=== PATIENT | female | born 1975 | race Caucasian/White ===

== ENCOUNTER 2022-03-06 11:30 | Inpatient (IN) | payer BC, OTHER ==
[2022-03-06] MEDS ORDERED: Sodium Chloride 0.9% 10 ML Syringe FLUSH PRN (11:51)
[2022-03-06] MEDS ORDERED: Ondansetron 4 MG/2 ML SDV IVPUSH ONE (11:53)
[2022-03-06] MEDS: Sodium Chloride 0.9% 1,000 ML IV SCH ×3 (12:00→19:17)
[2022-03-06 12:31] LABS: ANION GAP 22.7 mmol/L (5-15)
[2022-03-06 13:38] LABS: CORONAVIRUS COVID-19 NAA NEGATIVE (NEGATIVE)
[2022-03-06 13:39] LABS: RESPIRATORY SYNCYTIAL VIR NAA NEGATIVE (NEGATIVE)
[2022-03-06] MEDS ORDERED: Ondansetron 4 MG Tab.DIS PO PRN (13:59)
[2022-03-06] MEDS ORDERED: Acetaminophen 325 MG Tab PO PRN (13:59)
[2022-03-06] MEDS ORDERED: Ondansetron 4 MG/2 ML SDV IVPUSH PRN (14:02)
[2022-03-06] MEDS ORDERED: Loperamide 2 MG Cap PO PRN (15:36)
[2022-03-06 16:34] LABS: ANION GAP 17.3 mmol/L (5-15)
[2022-03-06] MEDS: traZODone 50 MG Tab PO PRN (20:07)
[2022-03-07] MEDS: Sodium Chloride 0.9% 1,000 ML IV SCH ×2 (01:57→18:10)
[2022-03-07] MEDS: Pantoprazole 40 MG Tab.CR PO SCH (05:59)
[2022-03-07 07:01] LABS: ANION GAP 13.5 mmol/L (5-15)
[2022-03-07] MEDS: buPROPion 150 MG Tab.ER PO SCH (07:11)
[2022-03-07] MEDS ORDERED: ADALIMUMAB 40 MG/0.4 ML SQ SCH (10:00)
[2022-03-07] MEDS: COLESTIPOL HCL 1 GM PO SCH ×2 (10:27→21:25)
[2022-03-07] MEDS: traZODone 50 MG Tab PO PRN (21:25)
[2022-03-08] MEDS: Pantoprazole 40 MG Tab.CR PO SCH (06:21)
[2022-03-08] MEDS: buPROPion 150 MG Tab.ER PO SCH (07:18)
[2022-03-08 07:49] LABS: ANION GAP 10.6 mmol/L (5-15)
== END 2022-03-08 12:00 | disposition home or self-care (01) | DRG 683 ==
LOC: VM.ED 11:30 → VM.MS 13:09
PROVIDERS: ADMIT Family Medicine; ATTEND Family Medicine
DX: N17.9 Acute kidney failure, unspecified (principal); E87.1 Hypo-osmolality and hyponatremia; D84.821 Immunodeficiency due to drugs; K50.90 Crohn's disease, unspecified, without complications; A08.4 Viral intestinal infection, unspecified; I10 Essential (primary) hypertension; E86.0 Dehydration; E66.9 Obesity, unspecified; K21.9 Gastro-esophageal reflux disease without esophagitis; F32.A Depression, unspecified; G47.00 Insomnia, unspecified; Z20.822 Contact with and (suspected) exposure to COVID-19; Z88.8 Allergy status to other drugs, medicaments and biological substances; Z68.39 Body mass index [BMI] 39.0-39.9, adult; Z79.899 Other long term (current) drug therapy
CPT/HCPCS: 0241U; 36415; 80048; 80053; 81001; 81025; 83735; 84100; 85025; 86140; 96374; 99284; 99284-25; A9270-GY; J2405; J3490; J7030; J7500